=== PATIENT | male | born 2005 | race Caucasian/White ===

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

== ENCOUNTER 2024-12-01 19:10 | Emergency (ER) | payer SELFPAY ==
--- OUTSIDE RECORDS SUMMARY | 2024-12-01 19:24 | XMS_ITS | Clinical Summary ---
Author Organization [facility] Address [address] [place] [address] Care Team Providers Care Filtration Supervisor Name Role Phone Brigida Cee Mackenzie Primary Care Provider Source Comments [facility],non-owned Affiliates and Associated Physician Practices is amultiple site organization consisting of ambulatory clinics and hospital sitesin [place], [place], [place] and [place]. This disclosure is being madepursuant to the Care Everywhere program and may not contain all information available regarding this patient. Last updated 18.[facility] [employer] Allergies No known active allergies Medications * Be aware that medications may not be up to date on this document. Alwaysverify current medications with the patient. Medication Sig Dispensed Refills Start Date End Date Status valACYclovir (Valtrex) 500 MG tablet 10/13/2023 Active amoxicillin (Amoxil) 875 MG tabletIndications: Immunodeficiency Take 1 (one) tablet by mouth once daily Reasons: Immunodeficiency 30 tablet 9 12/24/2023 Active budesonide-formote rol (Symbicort) 160-4.5 MCG/ACT inhaler Inhale 1 (one) puff by mouth 2 times daily Use the Symbicort 1 puffs twice a day regularly and 1 puff as needed per the asthma action plan and before exertion up to 12 total puffs a day. The Symbicort is both his controller and reliever inhaler (SMART Therapy) 10.2 g 9 12/24/2023 Active cetirizine (ZyrTEC) 10 MG tabletIndications: Non-allergic rhinitis Take 1 (one) tablet by mouth at bedtime 30 tablet 9 12/24/2023 Active fluticasone furoate (Flonase Sensimist) 27.5 MCG/SPRAY nasal sprayIndications:N on-allergic rhinitis [place] 1 (one) spray into each nostril once daily 9.1 mL 9 12/24/2023 Active montelukast (Singulair) 10 MG tabletIndications: Non-allergic rhinitis,Severe persistent asthma, uncomplicated (HCC) TAKE 1 TABLET BY MOUTH AT BEDTIME 30 tablet 3 10/28/2024 Active Active Problems Problem Noted Date Diagnosed Date Severe persistent asthma, uncomplicated 12/29/19 13 Non-allergic rhinitis 12/28/2012 Overview (12/20/2019): 12/28/12: allergy SPT 2+ to trees and ragweed. 12/28/12: IgE immunocaps negative. 09/28/17: IgE immunocaps to inhalants: negative. 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 03/03/13: Post Pneumovax titers Normal response, + 19 of 23 (+83%) Normal IgG = 575 Immune screen normal 09/28/17: lab results Repeat Immune Screen: CBC normal except slightly high hemoglobin. IgG/A/M/E normal Pneumococcal titers -08/06 (+52%. Low) 10/12/17: had a repeat Pneumovax 12/20/18 lab results Post Pneumovax Pneumococcal titers: + = + 65% (somewhat low) IgG subclasses normal Possible SAD. 02/27/21: Repeat Immune Screen: 02/27/21 03/16/23 IgG IgA IgM IgG1 IgG2 IgG3 IgG4 IgE Anti-diphtheria Anti-tetanus Anti-HiB Decreased Anti-Prevnar Decreased anti-Spn + = 61% protective (poor response) + 05/06 = 35% (poor response, last Pneumovax 10/12/17) C3 C4 CH50 AH50 MBL ALC 1800 1656 CD3 %, # 67%, 1206 63, 1043 CD4 %, # 49%, 882 45, 745 CD8 %, # 14%, 252 (low) 16, 265 (low, low) CD19 %, # 14%, 252 12, 199 CD56 %, # 18%, 354 25, 414 CD4+CD45RA+ %, # 55%, 485 (low) 50, 373 CD4+CD45RO+ %, # 49%, 432 (high) 51, 380 CD27+ memory B %, # 6%, 15 (low) 16, 32 IgD- switch B %, # 5%, 13 10, 20 Oxidative Burst Serotypes contained in Prevnar 1, 3, 4, 5, 6A*, 6B (26), 7F (51), 9V (68), 14, 18C (56), 19A (57), 19F (19), 23F (23) *6A not contained in 23 serotype lab Lymphocyte proliferation assay: PHA: low normal ConA: low normal [place]weed: normal [place]: low normal Tetanus: normal Mixed lymphocyte response: Interpretation: Poor post Pneumovax response (6 years post readministration) Mildly low CD8 T Cells. Consistent with SAD 04/03: Started antibiotic prophylaxis with amoxicillin 12/24/23: When home from school this May, should receive a dose of the Prevnar 20 One and 6 months later, should get 23 Pneumococcal titers drawn With the first draw, get IgG, IgM, IgA, and IGE as well. Resolved Problems Problem Noted Date Diagnosed Date Resolved Date Excessive cerumen in both ear canals 09/28/2017 12/24/2023 Encounters Date Type Department Care Team Description 10/27/2024 Refill [facility] - Allergy [address] [place] [phone] Ish Presley MD Refill Request 10/06/2024 Telephone [facility] - Allergy [address] [place] [phone] Ish Presley MD Update from Last 3 Months Immunizations Name Administration Dates Next Due INFLUENZA VACCINE, QUADR. (F LUZONE; FLULAVAL; FLUARIX; AFLURIA QUADRIVALENT; 6MO+), 0.5 ML (IIV4) 07/02/2015 PNEUMOCOCCAL PCV20 CONJ VAC IM 12/29/2023(Deferr ed: Other) PNEUMOCOCCAL PPSV23 10/12/2017(Deferred: Other),02/08/2013(Deferred: Patient receiving vaccine outside of office per insurance) Family History Medical History Relation Name Comments Arthritis - Rheumatoid Maternal Grandmother Allergies Mother Asthma Mother Eczema Mother Relation Name Status Comments Maternal Grandmother Mother Social History Tobacco Use Types Packs/Day Years Used Date Smoking Tobacco: Never Passive Smoke Exposure: Never Smokeless Tobacco: Never Tobacco Cessation:Counseling Given: Not Answered Sex and Gender Information Value Date Recorded Sex Assigned at Not on file Gender Identity Not on file Sexual Orientation Not on file Last Filed Vital Signs Vital Sign Reading Time Taken Comments Blood Pressure 120/70 03/16/2023 11:23 AM CDT Pulse 69 03/16/2023 11:23 AM CDT Temperature 36.3 C (97.4 F) 04/01/2021 10:52 AM CDT Respiratory Rate 18 03/16/2023 11:2 3 AM CDT Oxygen Saturation 98% 03/16/2023 11: 23 AM CDT Inhaled Oxygen Concentration - - Weight 126.9 kg (279 lb 12. 2 oz) 03/16/2023 11:23 AM CDT Height 188 cm (6' 2 ) 03/16/2023 11:23 AM CDT Body Mass Index 35.92 03/16/2023 11:23 AM CDT Body Mass Index Percentile 98.42% 03/16 11:23 AM CDT Growth Chart: CDC (Boys, 2-2 0 Years) Plan of Treatment Upcoming Encounters Date Type Department Care Team (Late st Contact Info) Description 01/30/2025 2:30 PM CDT Appointment [facility] - Allergy [address] [place] [address] [phone] Ish Presley MD [address] [place] [address] Health Maintenance Due Date Last Done Comments COVID-19 VACCINE (#1) 2009 HIV SCREENING 01/01/2020 HPV VACCINE (1 - Male 3-dose series) 01/01/2020 MENINGOCOCCAL (Group B) VACCINE SHARED DECISION-MAKING (1 of 2 - Standard) 2020 HEPATITIS C SCREENING 12/27/2022 DTAP/TDAP/TD VACCINES (1 - Tdap) 01/01/2024 HEPATITIS B VACCINE (1 of 3 - 19+ 3-dose series) 01/01/2024 PNEUMOCOCCAL VACCINE (1 of 2 - PCV) 01/01/2024 ZOSTER VACCINE (1 of 2) 01/01/2024 INFLUENZA VACCINE (#1) 2024 8, 05/13/2017, 06/12/2016, Additional history exists DEPRESSION SCREENING 09/14/2024 HIB VACCINE Aged Out No longer eligi ble based on patient's age to complete this topic MENINGOCOCCAL GROUPS A/C/Y/W VACCINE Aged Out No longer eligible based on patient's age to complete this topic Care Teams Filtration Supervisor Relationship Specialty Start Date End Date BrigidaCee Foley [address] [place] [id number] PCP - General 03/16/23
--- OUTSIDE RECORDS SUMMARY | 2024-12-01 19:24 | XMS_ITS | Referral Summary ---
Author Organization [facility] Address [address] [place] [address] Care Team Providers Care Overhead Foreman Name Role Phone Fara Mackenzie NP Primary Care Provider Encounters Date Type Department Care Team Description 09/02/2024 Orders Only [facility] Gastroenterology [address] [place] [address] [place] [address] Izzy Roman LPN from Last 3 Months Allergies Active Allergy Reactions Criticality Noted Date Comments Grass Pollen Rhinitis Low 11/27/2021 Pollen Extracts Rhinitis Low 11/27/2021 Medications cetirizine (ZyrTEC) 5 mg tablet Take 2 tablets (10 mg total) by mouth daily Active montelukast (SINGULAIR) 10 mg tablet Take 1 tablet (10 mg total) by mouth nightly Active albuterol HFA (PROVENTIL HFA,VENTOLIN HFA,PROAIR HFA) 90 mcg/actuation inhaler Inhale 2 puffs every 6 (six) hours as needed for wheezing Active amoxicillin (AMOXIL) 875 mg tablet Take 1 tablet (875 mg total) by mouth 2 (two) times a day Active acetaminophen (TYLENOL) 500 mg tablet Take 2 tablets (1,000 mg total) by mouth every 6 (six) hours as needed for pain Active ibuprofen (ADVIL,MOTRIN) 200 mg tab/cap Take 3 tablet/capsule (600 mg total) by mouth every 6 (six) hours as needed for pain Active Symbicort 160-4.5 mcg/actuation inhaler INHALE 2 PUFFS BY MOUTH TWICE DAILY REGULARLY AND 1 OR 2 PUFFS NEEDED PER THE ASTHMA ACTION PLAN AND BEFORE EXERTION UP TO 12 TOTAL PUFFS A DAY 3 Active amitriptyline (ELAVIL) 10 mg tabletIndications: Gastroesophageal reflux disease, unspecified whether esophagitis present,Chronic nausea Take 1 tablet (10 mg total) by mouth nightly 90 tablet 3 4 025 Active omeprazole (PriLOSEC) 40 mg capsuleIndications :Gastroesophageal reflux disease, unspecified whether esophagitis present,Chronic nausea Take 1 capsule (40 mg total) by mouth 2 (two) times a day 60 capsule 3 4 Active dicyclomine (BENTYL) 10 mg capsuleIndications :Abdominal pain Take 1 capsule (10 mg total) by mouth 4 (four) times a day as needed (for abdominal pain) 60 capsule 11 4 025 Active cholecalciferol (VITAMIN D-3) 2000 unit capsule Take 1 capsule (2,000 Units total) by mouth daily Active omeprazole (PriLOSEC) 20 mg capsule Take 1 capsule (20 mg total) by mouth 2 (two) times a day Omeprazole taper 60 capsule 2 4 Active ondansetron ODT (ZOFRAN-ODT) 4 mg disintegrating tablet Take 1 tablet (4 mg total) by mouth every 8 (eight) hours as needed for nausea 20 tablet 1 4 Active Active Problems Problem Noted Date Diagnosed Date Positive autoantibody screening for celiac disea se 09/01/2024 Gastroesophageal reflux disease 06/16/2024 Assessment & Plan (06/16/2024 12:13 PM CDT): Recent EGD biopsies with no H pylori. Some evidence of inflamed mucosa. Awaiting visit with GI - they will be calling him this week to schedule. They advised continuing BID PPI. However, he is having some nausea for 30 min after taking pantoprazole, he develops nausea. He previously tolerated omeprazole. Will switch to omeprazole 40 mg BID. Asked pt to let me know when GI schedules his follow up visit. Chronic nausea 06/09/2024 Assessment & Plan (06/16/2024 12:14 PM CDT): EGD with no clear etiology. Still having really bothersome with any PO intake including liquids, medications, bland foods. Per chart review, GI will be reaching out for an office visit. Treating nausea with PPI, small bland meals, prn zofran and promethazine. Having minimal relief. Will try switching to scopolamine patches. Sent to pharmacy. Assessment & Plan (06/09/2024 5:15 PM CDT): 5 days of n/v and epigastric pain developing after each meal. Able to tolerate small amounts of liquid. No wt loss at this point. Concern for gastritis vs ulcer vs gallbladder etiology. Will get stat US RUQ, EGD, check CMP, CBC, and will start pantoprazole 40 mg BID. Discussed small, bland snacks throughout day. Discussed monitoring for dehydration. Zofran helping prevent vomiting, but he is still feeling nauseous and having epigastric pain. US scheduled for today, EGD scheduled for tomorrow. Will touch base pending results. Can start pantoprazole today. Epigastric pain 06/09/2024 Lower respiratory infection 04/15/2024 Assessment & Plan (04/15/2024 9:34 AM CDT): Concern for CAP based on physical exam and sx. Also has antibody deficiency, takes amoxicillin daily. Recommended treatment with azithromycin and switch from amoxil to augmentin for 10 days. Advised this would cover CAP. Zofran prn for nausea. Chest x-ray today. Recommended mucinex with full glass of water for productive cough. Reach out if sx persist and don't fully resolve w/ tx. 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 Sakina Pickard Asthma 06/29/2023 Encounter for preventative adult health care exa mination 01/12/2023 Assessment & Plan (01/12/2023 11:03 AM CDT): Wellness Plan: - Age-appropriate anticipatory guidance and counseling was reviewed. - Reviewed health screenings and is up to date, encourage healthy habits. Health Maintenance Topic Date Due Meningococcal B Vaccine (1 of 2 - Risk Bexsero 2-dose series) Never done Meningococcal Vaccine (2 - 2-dose series) 2020 Covid-19 Vaccine (4 - Booster for Pfizer series) 06/16/2022 Influenza Vaccine (Season Ended) 2023 Pneumococcal vaccine <65 (2 - PPSV23) 07/09/2023 Depression Screening-PHQ 01/06/2024 Regular Well Visit/Exam 18-64 01/06/2024 DTaP/Tdap/Td Vaccine (7 - Td or Tdap) 01/09/2025 Hepatitis B Vaccines Completed Varicella Vaccines Completed HPV Vaccines Completed -- pt will send us a copy of vaccination records to update in chart. Concussion with no loss of consciousness 023 Assessment & Plan (01/12/2023 4:54 PM CDT): Occurred 2 days ago during a school wrestling match. He was first evaluated by the school parent trainer and dx with a Concussion. His symptoms have been improving each day. He no longer has nausea, OCONNELL, or light sensitivity. He does have some ongoing dizziness and balance concerns. I recommended he continue to rest, stay out of gym and sports for at least the next week. Discussed post concussion syndrome and common concussion symptoms. Closely monitor for any changes or worsening s/s. If sx continue to improve, he is cleared to return to sports on 01/19. Excessive cerumen in both ear canals 09/28/2017 Allergic conjunctivitis of both eyes 07/02/2015 Pain of finger 09/11/2014 Fracture of phalanx of finger 09/11/2014 Infectious warts 06/19/2014 Eczema 12/28/2012 Non-allergic rhinitis 12/28/2012 Overview (11/13/2021): 12/28/12: allergy SPT 2+ to trees and ragweed. 12/28/12: IgE immunocaps negative. 09/28/17: IgE immunocaps to inhalants: negative. 12/28/12: allergy SPT 2+ to trees and ragweed. 12/28/12: IgE immunocaps negative. 09/28/17: IgE immunocaps to inhalants: negative. 12/20/18: IgE area 5 panel negative, total IgE 25 Recurrent infections 12/28/2012 Overview (05/10/2019): 12/28/12: Immune screen Remarkable for poor pneumococcal response, - 17 of 23 overall, - 5 of 7 Prevnar. 03/03/13: Post Pneumovax titers Normal response, + 19 of 23 Normal IgG = 575 Immune screen normal 09/28/17: lab results Repeat Immune Screen: CBC normal except slightly high hemoglobin. IgG/A/M/E normal Pneumococcal titers -11 (+52%. low) Will: - repeat Pneumovax - recheck Pneumococcal titers 4 weeks later. 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 03/03/13: Post Pneumovax titers Normal response, + 19 of 23 (+83%) Normal IgG = 575 Immune screen normal 09/28/17: lab results Repeat Immune Screen: CBC normal except slightly high hemoglobin. IgG/A/M/E normal Pneumococcal titers -11 (+52%. Low) 10/12/17: had a repeat Pneumovax 12/20/18 lab results Post Pneumovax Pneumococcal titers: + = + 65% (somewhat low) IgG subclasses normal Possible SAD. 02/27/21: Repeat Immune Screen: 02/27/21 IgG IgA IgM IgG1 IgG2 IgG3 IgG4 IgE Anti-diphtheria Anti-tetanus Anti-HiB Decreased Anti-Prevnar Decreased anti-Spn + = 61% protective (poor response) C3 C4 CH50 AH50 MBL ALC 1800 CD3 %, # 67%, 1206 CD4 %, # 49%, 882 CD8 %, # 14%, 252 (low) CD19 %, # 14%, 252 CD56 %, # 18%, 354 CD4+CD45RA+ %, # 55%, 485 (low) CD4+CD45RO+ %, # 49%, 432 (high) CD27+ memory B %, # 6%, 15 (low) IgD- switch B %, # 5%, 13 Oxidative Burst Serotypes contained in Prevnar 1, 3, 4, 5, 6A*, 6B (26), 7F (51), 9V (68), 14, 18C (56), 19A (57), 19F (19), 23F (23) *6A not contained in 23 serotype lab Interpretation & Recommendations Lymphocyte proliferation assay: PHA: low normal ConA: low normal Pokeweed: normal Rimma: low normal Tetanus: normal Mixed lymphocyte response: Interpretation: Poor post Pneumovax response (3 years post readministration) Mild T and B cells abnormalities and responses on lymphocyte proliferation assay Consistent with SAD Will Start antibiotic prophylaxis with amoxicillin Molluscum contagiosum infection 02/21/2011 Immunizations Immunization Administration Dates Next Due DTaP / Hep B / IPV 07/15/2005,05/05/2005, 005 DTaP, Unspecified 11/08/2009,04/28/2006 HPV, Quadrivalent 04/16/2017,06/12/2016,04/08/20 16 Hep A, Unspecified 01/07/2007,01/06/2006 HiB 04/28/2006,05/05/2005,03/03/2005 Influenza, Quadrivalent, Spl it, Preservative Free, Intramuscular 07/02/2015 Influenza, Unspecified 07/09/2018,2016,06/12/2016,07/12,06/10/2013,07/12/2011,09/09/2010 ,07/24/2009 MMR 11/08/2009,01/06/2006 Meningococcal Conjugate (Menveo) 04/08/2016 Pneumococcal Conjugate PCV 13 02/04/2013 ,01/06/2006,07/15/2005,05/05,03/03/2005 Pneumococcal Polysaccharide PPV23 07/09/2018 Polio, Unspecified 11/08/2009,04/28/2006 Tdap 01/09/2015 Varicella 11/08/2009,01/06/2006 Social History Tobacco Use Types Packs/Day Years Used Date Smoking Tobacco: Never Smokeless Tobacco: Never Tobacco Cessation:Counseling Given: Not Answered AUDIT-C Answer Date Recorded Q1: How often do you have a drink containing alcohol? Never 09/01/2024 Q2: How many drinks containi ng alcohol do you have on a typical day when you are drinking? Patient does not drink Q3: How often do you have si x or more drinks on one occasion? Never 09/01/2024 PHQ-2 Answer Date Recorded PHQ-2 Total Score (If total score is 3 or more points, staff should administer the PHQ-9) 0 02/16/2024 PHQ-9 Answer Date Recorded PHQ-9 Total Score 6 02/16/2024 Personal Safety Answer Date Recorded Have you ever been in or are you currently in a harmful physical or emotional relationship or is someone making you feel afraid or unsafe? Denies 06/10/2024 Sex and Gender Information Value Date Recorded Sex Assigned at Not on file Legal Sex Male 6:52 AM ACQUISITIONS ASSISTANT Gender Identity Not on file Sexual Orientation Not on file Last Filed Vital Signs Vital Sign Reading Time Taken Comments Blood Pressure 135/83 09/01/2024 7:52 AM ACQUISITIONS ASSISTANT Pulse 57 09/01/2024 7:52 AM ACQUISITIONS ASSISTANT Temperature 36.6 C (97.9 F) 09/01/2024 7:52 AM ACQUISITIONS ASSISTANT Respiratory Rate 14 06/10/2024 10:3 0 AM CDT Oxygen Saturation 97% 08/01/2024 2:52 PM ACQUISITIONS ASSISTANT Inhaled Oxygen Concentration - - Weight 128.6 kg (283 lb 9.6 oz) 09/01/2024 7:52 AM ACQUISITIONS ASSISTANT Height 188 cm (6' 2 ) 09/01/2024 7:52 AM ACQUISITIONS ASSISTANT Body Mass Index 36.41 09/01/2024 7:52 AM ACQUISITIONS ASSISTANT Plan of Treatment Not on file Procedures Procedure Name Priority Date/Time Associated Diagnosis Comments HEPATITIS C ANTIBODY Routine 02/16/2024 12:45 PM CDT Encounter for preventative adult health care examination from Last 3 Months or Most Recently Relevant to Health Maintenance Results * Hepatitis C antibody Blood (02/16/2024 12:45 PM CDT) Hep C Ab Nonreactive Nonreactive Comment: Interpretive Data Nonreactive: Antibodies to HCV not detected. Does NOT exclude the possibility of recent exposure to HCV. Equivocal: Equivocal for HCV antibodies. Supplemental molecular testing will be automatically performed to determine infection status in accordance with current CDC screening recommendations. Reactive: Positive for HCV antibodies. This may represent current or past HCV infection. Supplemental molecular testing will be automatically performed to determine current infection status in accordance with current CDC screening recommendations. Interpretive data was last revised on 2019. Testing performed by: [facility], [address] [place] [address]., [id number] Blood 02/16/2024 12:4 5 PM CDT 02/16/2024 4:31 PM CDT us Fara Mackenzie NP LAB MICROBIOLOGY - GEN ERAL ORDERABLES Edited Result - Final JARROD BJW[facility] [id number] [facility]. Department [place] [address] from Last 3 Months or Most Recently Relevant to Health Maintenance Insurance [facility] [address] [facility] PLUS [facility] [place] [address] Advance Directives For more information, please contact: [phone] * Full Code (Latest Code Status on File) Date Activated Date Inactivated Comments 06/10/2024 9:02 AM 06/10/2024 3:16 PM Care Teams Overhead Foreman Relationship Specialty Start Date End Date Fara Mackenzie NP [address] [address] PCP - General Nurse Practitioner 01/05/23
--- OUTSIDE RECORDS SUMMARY | 2024-12-01 19:24 | XMS_ITS | Clinical Summary ---
Author Organization [facility] Address [facility] [place] [address] Care Team Providers Care Handbook Writer Name Role Phone Fara Mackenzie NP Primary Care Provider Allergies Active Allergy Reactions Criticality Noted Date [...] He was first evaluated by the school link trainer maintenance worker and dx with a Concussion. His symptoms [...] prophylaxis with amoxicillin Molluscum contagiosum infection 02/21/2011 Encounters Date Type Department Care Team Description 09/02/2024 Orders Only [facility] Gastroenterology [address] [facility] 12th [place] [address] [place] [address] Izzy Roman LPN from Last 3 Months Immunizations Immunization Administration Dates Next Due DTaP / Hep B / IPV 07/15/2005,05/05/2005, 005 DTaP, Unspecified 11/08/2009,04/28/2006 HPV, Quadrivalent 04/16/2017,06/12/2016,04/08/20 16 Hep A, Unspecified 01/07/2007,01/06/2006 HiB 04/28/2006,05/05/2005,03/03/2005 Influenza, Quadrivalent, Spl it, Preservative Free, Intramuscular 07/02/2015 Influenza, Unspecified 07/09/2018,2016,06/12/2016,07/12,06/10/2013,07/12/2011,09/09/2010 ,07/24/2009 MMR 11/08/2009,01/06/2006 Meningococcal Conjugate (Menveo) 04/08/2016 Pneumococcal Conjugate PCV 13 02/04/2013 ,01/06/2006,07/15/2005,05/05,03/03/2005 Pneumococcal Polysaccharide PPV23 07/09/2018 Polio, Unspecified 11/08/2009,04/28/2006 Tdap 01/09/2015 Varicella 11/08/2009,01/06/2006 Medical History Medical History Date Comments Asthma 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 Allergies Family History Medical History Relation Name Comments No Known Problems Father Short gut syndrome Father's Brother Diabetes type II Maternal Grandfather Diabetes type II Maternal Grandmother Thyroid disease Maternal Great-Grandmother Breast cancer Mother Fibromyalgia Mother Osteoarthritis Mother Crohn's disease Other Mother's cousin Celiac disease Neg Hx Colon cancer Neg Hx Diabetes type I Neg Hx Stomach cancer Neg Hx Ulcerative colitis Neg Hx Relation Name Status Comments Father Alive Father's Brother Maternal Grandfather Maternal Grandmother Maternal Great-Grandmother Alive Mother Alive Other Mother's cousin Social History Tobacco Use Types Packs/Day Years [...] on file Legal Sex Male 6:52 AM PROBATION COUNSELOR Gender Identity Not on file Sexual Orientation Not on file Obstetrics History Growth Chart Information Age Height Weight Kfzwqy-egi-iaxr th Percentile BMI Percentile Head Circum Head Circum Percentile Date 18 years 188 cm (6' 2 ) 128.6 kg (283 lb 9.6 oz) 98.07%* 2023 18 years 188 cm (6' 2 ) 128.8 kg (284 lb) 98.13%* 2023 18 years 188 cm (6' 2 ) 131.5 kg (290 lb) 98.44%* 2023 18 years 188 cm (6' 2 ) 130.6 kg (288 lb) 98.36%* 2023 18 years 188 cm (6' 2 ) 2023 18 years 188 cm (6' 2 ) 131.2 kg (289 lb 3.2 oz) 98.42%* 2023 18 years 188 cm (6' 2 ) 129.3 kg (285 lb) 98.29%* 2023 18 years 187.3 cm (6' 1.75 ) 127.2 kg (280 lb 6.4 oz) 98.22%* 2023 17 years 187.3 cm (6' 1.75 ) 118.8 kg (262 lb) 97.66%* 2022 17 years 187.3 cm (6' 1.75 ) 119 kg (262 lb 6.4 oz) 97.69%* 2022 5 years 31.8 kg (70 lb 1.7 oz) 2010 5 years 31.5 kg (69 lb 7.1 oz) 2010 5 years 30.7 kg (67 lb 10.9 oz) 2010 5 years 29.4 kg (64 lb 13 oz) 2010 5 years 28.2 kg (62 lb 2.7 oz) 2010 5 years 28.1 kg (61 lb 15.2 oz) 2010 * [facility] (Boys, 2-20 Years) Last Filed Vital Signs Vital Sign Reading Time Taken Comments Blood Pressure 135/83 09/01/2024 7:52 AM PROBATION COUNSELOR Pulse 57 09/01/2024 7:52 AM PROBATION COUNSELOR Temperature 36.6 C (97.9 F) 09/01/2024 7:52 AM PROBATION COUNSELOR Respiratory Rate 14 06/10/2024 10:3 0 AM CDT Oxygen Saturation 97% 08/01/2024 2:52 PM PROBATION COUNSELOR Inhaled Oxygen Concentration - - Weight 128.6 kg (283 lb 9.6 oz) 09/01/2024 7:52 AM PROBATION COUNSELOR Height 188 cm (6' 2 ) 09/01/2024 7:52 AM PROBATION COUNSELOR Body Mass Index 36.41 09/01/2024 7:52 AM PROBATION COUNSELOR Plan of Treatment Health Maintenance Due Date Last Done Comments Meningococcal B Vaccine (1 of 2 - Standard) 2020 Pneumococcal vaccine <65 (2 of 2 - PPSV23, PCV20 or PCV21) 07/09/2023 07/09/2018, 02/04/2013, 01/06/2006, Additional history exists Covid-19 Vaccine ( season) 2024 04/21/2022, 04/11/2021, 03/08/2021 Influenza Vaccine (#1) 2024 8, 05/13/2017, 06/12/2016, Additional history exists DTaP/Tdap/Td Vaccine (7 - Td or Tdap) 01/09/2025 01/09/2015, 11/08/2009, 04/28/2006, Additional history exists Depression Screening 02/15/2025 02/16/2024, 01/05/2023, 01/05/2023 Regular Well Visit/Exam 18-64 02/15/2025 02/16/2024, 01/05/2023 Zoster Vaccine (1 of 2) 02/15/2025 Post poned from 01/01/2024 (Patient declined, but will receive in the future) Hepatitis B Screening Completed 07/15/2005 , 05/05/2005, 03/03/2005 Varicella Vaccines Completed 11/08/2009, 01/06/2006 Meningococcal Vaccine Aged Out 04/08/2016 No duncan devon eligible based on patient's age to complete this topic HPV Vaccines Completed 04/16/2017, 05/16, 04/08/2016 Hepatitis C Screening Completed 02/16/2024 Procedures Procedure Name Priority Date/Time Associated Diagnosis [...] revised on 2019. Testing performed by: [facility], [address] [place]., [address] Blood 02/16/2024 12:4 5 PM CDT 02/16/2024 4:31 PM CDT Fara Mackenzie NP LAB MICROBIOLOGY - GEN ERAL ORDERABLES Edited Result - Final JARROD WCH [id number] [facility]. [place] [address] from Last 3 Months or Most Recently Relevant to Health Maintenance Insurance [facility] PLUS [facility] PLUS [facility] PLUS [facility] PL[facility] Advance Directives For more information, please contact: [phone] * Full Code (Latest Code Status on File) Date Activated Date Inactivated Comments 06/10/2024 9:02 AM 06/10/2024 3:16 PM Care Teams Handbook Writer Relationship Specialty Start Date End Date Fara Mackenzie NP [address] [address] PCP - General Nurse Practitioner 01/05/23
[2024-12-01 19:29] VITALS: BP 140/73; PULSE 68; RESP 14; TEMP 36.6; O2SAT 100
[2024-12-01 19:46] LABS: EDSTREPNEGPOS1 Negative (Negative)
--- NOTE | 2024-12-01 19:49 | ED.URI ---
HPI - URI/Sore Throat General Chief Complaint: Upper Respiratory Infection Stated Complaint: sore throat / History of Present Illness HPI Narrative: 18 y/o male presented with c/o sore throat. Onset yesterday. States he vomited some mucous yesterday and has a mild runny nose. Denies cough, sob, wheezing, fever or lethargy. Taking Sudafed, Mucinex, and Excedrin. Pt also reports a history of antibiotic deficiency (taking amoxicillin 875mg daily for years) Related Data Home Medications ?Medication ?Instructions ?Recorded ?Confirmed ?Last Taken ?Type budesonide-formoterol HFA 160 1 inh inhalation DIRECTED 10/22/19 11/11/21 Unknown History mcg-4.5 mcg/actuation aerosol inhaler (Symbicort) montelukast 5 mg chewable tablet 5 mg PO DAILY 10/22/19 11/11/21 Unknown History cetirizine 10 mg tablet 10 mg PO HS 11/11/21 11/11/21 Unknown History amoxicillin 875 mg tablet mg 12/01/24 Unknown History Allergies Allergy/AdvReac Type Severity Reaction Status Date / Time gluten AdvReac Mild Nausea and Verified 12/01/24 19:27 Vomiting Review of Systems Review of Systems: CONSTITUTIONAL: Denies body aches, fever, chills, or sweats. EYES: Denies visual changes, redness, or discharge. ENT: reports sore throat, rhinorrhea CARDIOVASCULAR: Denies chest pain, palpitations, or edema. RESPIRATORY: Denies dyspnea. GASTROINTESTINAL: Denies abdominal pain, nausea, vomiting, or diarrhea. SKIN: Denies rash MUSCULOSKELETAL: Denies back pain, joint pain, or myalgia. NEUROLOGIC: Denies headache PMFSH Past Medical History Medical History Asthma Chronic sinus infection Ear infection Surgical History Surgical History No significant past surgical history Family History Family History Mother Asthma Breast cancer Social History Social History Smoking status: Never smoker Alcohol intake: never Substance use: never Living arrangements: with family Occupation/Education: student Gender identity (if verbalized by the patient): Male Exam Narrative: GENERAL: well-appearing EYES: conjunctivae clear ENT: Mucous membranes moist. TMs pearly soler with normal light reflex bilaterally; no tragal tenderness. Oropharynx mildly erythematous without lesions. Tonsils not enlarged and without exudate. No drooling, no hoarseness, no trismus, uvula midline. No tripod positioning, hot potato voice, or soft palate swelling. NECK: Supple. No lymphadenopathy CHEST: Clear to auscultation, breath sounds equal. HEART: Regular rate and rhythm. SKIN: Warm, dry, no rash. NEURO: Alert and oriented x3. Course Course Emergency Course: Patient is aware of diagnosis, understands and agrees to treatment plan. Anticipatory guidance given. Patient agrees to follow-up as directed and is aware of reasons to seek care at the emergency department. Portions of this record may have been created with voice recognition software Level of Care: Express Care Visit Vital Signs Vital signs: Vital Signs Temperature 97.8 F 12/01/24 19:29 Pulse Rate 68 12/01/24 19:29 Respiratory Rate 14 12/01/24 19:29 Blood Pressure 140/73 12/01/24 19:29 Pulse Oximetry 100 12/01/24 19:29 Oxygen Delivery Room Air 12/01/24 19:29 Temperature 97.8 F 12/01/24 19:29 Pulse Rate 68 12/01/24 19:29 Respiratory Rate 14 12/01/24 19:29 Blood Pressure 140/73 12/01/24 19:29 Pulse Oximetry 100 12/01/24 19:29 Oxygen Delivery Room Air 12/01/24 19:29 MDM - URI/Sore Throat MDM Narrative Medical decision making narrative: Neg strep result reviewed with pt. Pt takes daily Amox. Advise supportive treatments. Patient is appropriate for outpatient treatment and follow-up. Differential Diagnosis Differential diagnosis: Likely upper respiratory infection, viral infection and pharyngitis Lab Data Labs: Lab Results 12/01/24 Range/Units 19:45 POC Grp A Strep Screen Negative (Negative) Discharge Plan Discharge Clinical Impression: Pharyngitis Patient Disposition: Home, Self-Care Condition: Stable Instructions: Antibiotic Form, Strep Throat (ED) Additional Instructions: Rapid strep swab was negative today You will be notified in a few days if the culture comes back positive for strep, you are currently taking the appropriate antibiotic for strep throat coverage if symptoms are due to a viral illness, it is not treated with antibiotics. Viral symptoms can be present for up to 10-14 days. Recommendations: Flonase spray and Zyrtec for sinus congestion Cough syrup may cause drowsiness; avoid driving or take it at night time. Tylenol every 8 hours as needed for pain/fever Soft foods, cool liquids, warm tea. Gargle with warm saltwater twice a day. Chloraseptic spray and throat lozenges. Rest and stay hydrated. --Follow up with your PCP --Go to the ER immediately if you cannot swallow your saliva, trouble breathing/wheezing, throat swelling, pain is persistent and severe Patient Language: Kyrgyz Prescriptions: No Action montelukast 5 mg tablet,chewable 5 mg PO DAILY budesonide-formoterol [Symbicort] 160-4.5 mcg/actuation HFA aerosol inhaler 1 inh INHALATION DIRECTED cetirizine 10 mg tablet 10 mg PO HS amoxicillin 875 mg tablet Follow-up/Referrals: Avril,Fara Holguin [Other]
== END 2024-12-01 19:55 | disposition home or self-care (01) ==
PROVIDERS: Emergency Provider Nurse Practitioner Family
DX: J02.9 Acute pharyngitis, unspecified (principal); J45.909 Unspecified asthma, uncomplicated
CPT/HCPCS: 87081; 87880; 99213; G0463

== ENCOUNTER 2025-02-16 14:40 | Emergency (ER) | payer OTHER, SELFPAY ==
--- NOTE | ~2025-02-16 | XR_ITS ---
XR foot LT min 3V Ordering provider: Tramaine Lentz APRN History: . dropped bed frame on top of left foot 3 weeks ago pain . Comparison: None. FINDINGS: BONES: No acute fracture or dislocation. JOINT SPACES: Normal. No tarsal coalition. SOFT TISSUES: Normal. IMPRESSION: No acute osseous abnormality left foot. Reviewed, dictated and finalized at location A.
[2025-02-16 14:45] VITALS: BP 137/75; PULSE 69; RESP 16; TEMP 36.3; O2SAT 99
--- NOTE | 2025-02-16 14:45 | ED_ITS ---
HPI - Extremity Injury (Lower) General Chief Complaint: Extremity Injury, Lower Stated Complaint: Lt Foot Injury Time Seen by Provider: 02/16/25 14:43 Source: patient Mode of arrival: ambulatory Limitations: no limitations History of Present Illness HPI Narrative: Alex is a 19-year-old male patient presenting to the clinic today with complaints of left foot injury that occurred 3 weeks ago. He reports he was lifting a bed frame and dropped it on the top of his foot. Has a left to the top of his left foot. Patient has a wrestler and is when to make sure that there is nothing wrong with his foot prior to going back to wrestling practice. Related Data Home Medications ?Medication ?Instructions ?Recorded ?Confirmed ?Last Taken ?Type budesonide-formoterol HFA 160 1 inh inhalation DIRECTED 10/22/19 11/11/21 Unknown History mcg-4.5 mcg/actuation aerosol inhaler (Symbicort) montelukast 5 mg chewable tablet 5 mg PO DAILY 10/22/19 11/11/21 Unknown History cetirizine 10 mg tablet 10 mg PO HS 11/11/21 11/11/21 Unknown History amoxicillin 875 mg tablet mg 12/01/24 Unknown History Allergies Allergy/AdvReac Type Severity Reaction Status Date / Time gluten AdvReac Mild Nausea and Verified 02/16/25 14:51 Vomiting Review of Systems Review of Systems: Pertinent positives per HPI. Patient denies any fever, chills, rash, headache, visual changes, dizziness, cough, runny nose, sore throat, shortness of breath, chest pain, palpitations, nausea, vomiting, diarrhea, constipation, abdominal pain, or any urinary issues. [facility] Past Medical History Medical History Asthma Ear infection Chronic sinus infection Surgical History Surgical History No significant past surgical history Family History Family History Mother Asthma Breast cancer Social History Social History Smoking status: Never smoker Alcohol intake: never Substance use: never Living arrangements: with family Occupation/Education: student Gender identity (if verbalized by the patient): Male Comments At the time of my signature, I reviewed and agree with the nursing past medical, surgical, social, and family history. There is no relevant family history pertinent to the patient complaint. Exam Narrative: General: Well-developed, well nourished, in no apparent distress Head: Normocephalic, atraumatic. Cardio: Regular rate and rhythm, s1 and s2 normal, no murmur appreciated. Resp: Clear to auscultation bilaterally, no rhonchi, rales, wheezing or rubs. Musculoskeletal: No deformity, tender to palpation to the dorsal foot, grossly normal range of motion, muscle strength strong and equal, peripheral pulse strong, no edema, no cyanosis, normal gait and station Course Course Emergency Course: Portions of this record may have been created with voice recognition software. Level of Care: Express Care Visit Vital Signs Vital signs: Vital Signs Temperature 36.3 C L 02/16/25 14:45 Pulse Rate 69 02/16/25 14:45 Respiratory Rate 16 02/16/25 14:45 Blood Pressure 137/75 02/16/25 14:45 Pulse Oximetry 99 02/16/25 14:45 Oxygen Delivery Room Air 02/16/25 14:45 Temperature 36.3 C L 02/16/25 14:45 Pulse Rate 69 02/16/25 14:45 Respiratory Rate 16 02/16/25 14:45 Blood Pressure 137/75 02/16/25 14:45 Pulse Oximetry 99 02/16/25 14:45 Oxygen Delivery Room Air 02/16/25 14:45 Vital signs reviewed MDM - Extremity Injury (Lower) MDM Narrative Medical decision making narrative: At the time of visit patient is resting comfortably on the exam table. Patient appears to be nontoxic. Diagnostics: X-ray of the left foot was performed and was negative for any sign of fracture or malalignment. Plan: I suspect patient has left foot contusion. Supportive measures were discussed with the patient and they voiced understanding discharge instructions and agrees to treatment plan. Return precautions reviewed Differential Diagnosis Differential diagnosis: Likely fracture of toe and other (Foot fracture, foot sprain) Imaging Data Radiologist's impression: ITS Impressions Foot X-Ray 02/16/25 15:13 IMPRESSION: No acute osseous abnormality left foot. Discharge Plan Discharge Clinical Impression: Contusion of foot Qualifiers: Encounter type: initial encounter Laterality: left Qualified Code(s): S90.32XA - Contusion of left foot, initial encounter Patient Disposition: Home Condition: Stable Instructions: Antibiotic Form, Foot Contusion (ED) Additional Instructions: X-rays negative for any sign of fracture or malalignment of the left foot Rest, ice, elevate Tylenol/motrin for pain as discussed. Follow up with your PCP if symptoms persist more than 1 week. Patient Language: Belarusian Prescriptions: No Action montelukast 5 mg tablet,chewable 5 mg PO DAILY budesonide-formoterol [Symbicort] 160-4.5 mcg/actuation HFA aerosol inhaler 1 inh INHALATION DIRECTED cetirizine 10 mg tablet 10 mg PO HS amoxicillin 875 mg tablet Follow-up/Referrals: Avril,Fara Holguin [Other] Time of Disposition: 15:18 Quality NIHSS Nursing Documentation ED NIHSS nursing documentation: reviewed/agree
--- OUTSIDE RECORDS SUMMARY | 2025-02-16 15:19 | XMS_ITS | Referral Summary ---
Author Organization [facility] Address [address] [place] [address] Care Team Providers Care Forensic Scientist Name Role Phone Fara Mackenzie NP Primary [...] for nausea 20 tablet 1 4 Active valACYclovir (VALTREX) 500 mg tabletIndications: HSV (herpes simplex virus) infection Take 1 tablet (500 mg total) by mouth daily 90 tablet 1 5 Active Active Problems Problem Noted Date Diagnosed [...] He was first evaluated by the school hop strainer and dx with a Concussion. His symptoms [...] slightly high hemoglobin. IgG/A/M/E normal Pneumococcal titers -11/ (+52%. 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 Gender Identity Not on file Sexual Orientation Not on file Last Filed Vital Signs Vital Sign Reading Time Taken Comments Blood Pressure 135/83 09/01/2024 7:52 AM ENGINEER STEAM Pulse 57 09/01/2024 7:52 AM ENGINEER STEAM Temperature 36.6 C (97.9 F) 09/01/2024 7:52 AM ENGINEER STEAM Respiratory Rate 14 06/10/2024 10:3 0 AM CDT Oxygen Saturation 97% 08/01/2024 2:52 PM ENGINEER STEAM Inhaled Oxygen Concentration - - Weight 128.6 kg (283 lb 9.6 oz) 09/01/2024 7:52 AM ENGINEER STEAM Height 188 cm (6' 2) 09/01/2024 7:52 AM ENGINEER STEAM Body Mass Index 36.41 09/01/2024 7:52 AM ENGINEER STEAM Plan of Treatment Not on file Procedures [...] last revised on 2019. Testing performed by: [facility], [facility], [place]., [address] Blood 02/16/2024 12:4 5 PM CDT 02/16/2024 4:31 PM CDT Fara Mackenzie NP LAB MICROBIOLOGY - GEN ERAL ORDERABLES Edited Result - Final [facility] [id number] [facility]. [place] [address] from Last 3 Months or Most Recently Relevant to Health Maintenance Insurance [facility] Advance Directives For more information, please contact: [phone] * Full Code (Latest Code Status on File) Date Activated Date Inactivated Comments 06/10/2024 9:02 AM 06/10/2024 3:16 PM Care Teams Forensic Scientist Relationship Specialty Start Date End Date Fara Mackenzie NP [address] [facility] [address] [place] [address] PCP - General Nurse Practitioner 01/05/23
--- OUTSIDE RECORDS SUMMARY | 2025-02-16 15:19 | XMS_ITS | Clinical Summary ---
Author Organization [facility] Address [address] [facility] [place] [address] Care Team Providers Care Paper Winder Name Role Phone Brigida Cee Mackenzie Primary Care Provider Source Comments [facility],non-owned Affiliates and Associated Physician Practices is amultiple site organization consisting of ambulatory clinics and hospital sitesin [place], [place], [place] and [place]. This disclosure is being madepursuant to the Care Everywhere program and may not contain all information available regarding this patient. Last updated 18.[facility] Allergies Active Allergy Reactions Criticality Noted Date Comments Pollen Extract Rhinitis Low 11/27/2021 Medications * Be aware that medications may not be up to date on this document. Alwaysverify current medications with the patient. 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 The Symbicort is both his controller and reliever inhaler (SMART Therapy) 20.4 g 01/31/20 25 Active cetirizine (ZyrTEC) 10 MG tabletIndications :Non-allergic rhinitis Take 1 (one) tablet by mouth at bedtime 30 tablet 01/31/20 25 Active azelastine (Astelin) 0.1 % nasal spray [place] 1 (one) spray to 2 (two) sprays into each nostril 2 times daily 30 mL 01/31/20 25 Active budesonide-formot tasha (Symbicort) 160-4.5 MCG/ACT inhaler Inhale 1 (one) puff by mouth 2 times daily Use the Symbicort 1 puffs twice a day regularly and 1 puff as needed per the asthma action plan and before exertion up to 12 total puffs a day. The Symbicort is both his controller and reliever inhaler (SMART Therapy) 10.2 g 12/24/19 24 025 Discontin ued(Reord er) cetirizine (ZyrTEC) 10 MG tabletIndications :Non-allergic rhinitis Take 1 (one) tablet by mouth at bedtime 30 tablet 12/24/19 24 025 Discontin ued(Reord er) fluticasone furoate (Flonase Sensimist) 27.5 MCG/SPRAY nasal sprayIndications: Non-allergic rhinitis [place] 1 (one) spray into each nostril once daily 9.1 mL 12/24/19 24 025 Discontin ued(Clini salvatore Decision) montelukast (Singulair) 10 MG tabletIndications :Non-allergic rhinitis,Severe persistent asthma, uncomplicated (HCC) TAKE 1 TABLET BY MOUTH AT BEDTIME 30 tablet 3 10/28/19 25 025 Discontin ued(Clini salvatore Decision) Active Problems Problem Noted Date Diagnosed Date Emesis 02/05/2025 Overview (02/05/2025): 06/10/24: EGD showed no esophageal eosinophilia. Normal stomach and duodenum. No villous blunting (was avoiding gluten at the time. Severe persistent asthma, uncomplicated 12/29/19 13 Non-allergic [...] Anti-diphtheria Anti-tetanus Anti-HiB Decreased Anti-Prevnar Decreased anti-Spn +14 = 61% protective (poor response) + 8 = 35% (poor response, last Pneumovax 10/12/17) [...] Encounters Date Type Department Care Team Description 01/30/2025 2:18 PM CDT - 01/30/2025 11:59 PM CDT Hospital Encounter [facility] - Allergy [address] [place] [id number] Ish Presley MD Discharge Disposition: Home or Self Care 01/30/2025 Travel 12/15/2024 Refill [facility] - Allergy [address] [place] [id number] Ish Presley MD Refill Request from Last 3 Months Immunizations Immunization Administration Dates Next Due INFLUENZA VACCINE, QUADR. 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 Gender Identity Not on file Sexual Orientation Not on file Last Filed Vital Signs Vital Sign Reading Time Taken Comments Blood Pressure 120/70 03/16/2023 11:23 AM CDT Pulse 82 01/30/2025 2:25 PM CDT Temperature 36.3 C (97.4 F) 04/01/2021 10:52 AM CDT Respiratory Rate 18 03/16/2023 11:2 3 AM CDT Oxygen Saturation 99% 01/30/2025 2:25 PM CDT Inhaled Oxygen Concentration - - Weight 123.2 kg (271 lb 9.7 oz) 01/30/2025 2:25 PM CDT Height 186.5 cm (6' 1.43) 01/30/2025 2:25 PM CD T Body Mass Index 35.42 01/30/2025 2:25 PM CDT Plan of Treatment Health Maintenance Due Date Last Done Comments COVID-19 VACCINE (#1) 2009 HIV SCREENING 01/01/2020 HPV VACCINE (1 - Male 3-dose series) 01/01/2020 MENINGOCOCCAL (Group B) VACCINE SHARED DECISION-MAKING (1 of 2 - Standard) 2020 HEPATITIS C SCREENING 12/27/2022 DTAP/TDAP/TD VACCINES (1 - Tdap) 01/01/2024 HEPATITIS B VACCINE (1 of 3 - 19+ 3-dose series) 01/01/2024 ZOSTER VACCINE (1 of 2) 01/01/2024 DEPRESSION SCREENING 09/14/2024 INFLUENZA VACCINE (Season Ended) 2025 07/09/2018, 05/13/2017, 06/12/2016, Additional history exists PNEUMOCOCCAL VACCINE Completed 01/30/2025 HIB VACCINE Aged Out No longer eligi ble based on patient's age to complete this topic MENINGOCOCCAL GROUPS A/C/Y/W VACCINE Aged Out No longer eligible based on patient's age to complete this topic Procedures Procedure Name Priority Date/Time Associated Diagnosis Comments PULMONARY/RESPIRATO RY REPORT ORDER 02/13/2025 9:37 PM CDT from Last 3 Months Results * PULMONARY/RESPIRATORY REPORT ORDER (02/13/2025 9:37 PM CDT) Narrative 02/13/2025 9:37 PM CDT Ordered by an unspecified provider. us Scanned Document RESPIRATORY THERAPY ORDERABLES Final Result from Last 3 Months Insurance [facility] Member Subscriber Plan / Payer (Ef fective 2025-Present) Name:Alex Sethi Member ID:Not on file Relation to Subscriber:Self Name:Alex Sethi Payer ID:[id number] (NAIC) Type:HMO Address: [place] [id number] [place] [id number] Care Teams Paper Winder Relationship Specialty Start Date End Date BrigidaCee Foley [address] [place] [phone] PCP - General 03/16/23
--- OUTSIDE RECORDS SUMMARY | 2025-02-16 15:19 | XMS_ITS | Clinical Summary ---
Author Organization [facility] Address [facility] [place] [address] Care Team Providers Care Electrical Systems Drafter Name Role Phone Fara Mackenzie NP Primary [...] He was first evaluated by the school life trainer and dx with a Concussion. 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 Gender Identity Not on file Sexual Orientation Not on file Obstetrics History Last Filed Vital Signs Vital Sign Reading Time Taken Comments Blood Pressure 135/83 09/01/2024 7:52 AM MANAGER MARKET DEVELOPMENT Pulse 57 09/01/2024 7:52 AM MANAGER MARKET DEVELOPMENT Temperature 36.6 C (97.9 F) 09/01/2024 7:52 AM MANAGER MARKET DEVELOPMENT Respiratory Rate 14 06/10/2024 10:3 0 AM CDT Oxygen Saturation 97% 08/01/2024 2:52 PM MANAGER MARKET DEVELOPMENT Inhaled Oxygen Concentration - - Weight 128.6 kg (283 lb 9.6 oz) 09/01/2024 7:52 AM MANAGER MARKET DEVELOPMENT Height 188 cm (6' 2) 09/01/2024 7:52 AM MANAGER MARKET DEVELOPMENT Body Mass Index 36.41 09/01/2024 7:52 AM MANAGER MARKET DEVELOPMENT Plan of Treatment Health Maintenance Due Date Last Done Comments Meningococcal B Vaccine (1 of 2 - Standard) 2020 Pneumococcal vaccine <65 (2 of 2 - PPSV23, PCV20 or PCV21) 07/09/2023 07/09/2018, 02/04/2013, 01/06/2006, Additional history exists Zoster Vaccine (1 of 2) 01/01/2024 Covid-19 Vaccine (4 - season) 2024 04/21/2022, 04/11/2021, 03/08/2021 DTaP/Tdap/Td Vaccine (7 - Td or Tdap) 01/09/2025 01/09/2015, 11/08/2009, 04/28/2006, Additional history exists Depression Screening 02/15/2025 02/16/2024, 01/05/2023, 01/05/2023 Regular Well Visit/Exam 18-64 02/15/2025 02/16/2024, 01/05/2023 Influenza Vaccine (Season Ended) 2025 07/09/2018, 05/13/2017, 06/12/2016, Additional history exists Hepatitis B Screening Completed 07/15/2005 , 05/05/2005, [...] last revised on 2019. Testing performed by: [facility], [facility], [place]., [address] Blood 02/16/2024 12:4 5 PM CDT 02/16/2024 4:31 PM CDT Fara Mackenzie NP LAB MICROBIOLOGY - GEN ERAL ORDERABLES Edited Result - Final [facility] [id number] [facility]. [place] [address] from Last 3 Months or Most Recently Relevant to Health Maintenance Insurance [facility]/PPO [place]: [place] [address] [facility] H[facility]/PPO Address: [address] [place] [address] [facility] HMO/PPO Address: [place] [address] [facility]US [facility] HMO/PPO Address: [place] [phone] [facility] CHO[facility] PLUS [facility] HMO/PPO Address: [address] [place] [id number] Advance Directives For more information, please contact: [phone] * Full Code (Latest Code Status on File) Date Activated Date Inactivated Comments 06/10/2024 9:02 AM 06/10/2024 3:16 PM Care Teams Electrical Systems Drafter Relationship Specialty Start Date End Date Fara Mackenzie NP [address] [address] PCP - General Nurse Practitioner 01/05/23
== END 2025-02-16 15:21 | disposition home or self-care (01) ==
PROVIDERS: Emergency Provider Nurse Practitioner Family
DX: S90.32XA Contusion of left foot, initial encounter (principal); W20.8XXA Other cause of strike by thrown, projected or falling object, initial encounter; J45.909 Unspecified asthma, uncomplicated
CPT/HCPCS: 73630; 99213; G0463